=== PATIENT | female | born 1980 | race Two or more races ===

== ENCOUNTER 2018-06-30 21:18 | Emergency (ER) | payer MEDICAID, OTHER ==
[~2018-06-30] VITALS: Ht 157.5 cm; Wt 65.0 kg
[~2018-06-30 21:18] MED LIST: INSASP
[2018-06-30 21:20] VITALS: BP 136/68
== END 2018-07-01 | disposition left against medical advice (07) ==
LOC: ER 21:18
DX: M79.671 Pain in right foot (principal); Z53.21 Procedure and treatment not carried out due to patient leaving prior to being seen by health care provider
CPT/HCPCS: 82962

== ENCOUNTER 2018-07-01 07:27 | Emergency (ER) | payer MEDICAID, OTHER ==
[~2018-07-01] VITALS: Ht 160 cm; Wt 67.1 kg
[2018-07-01] MEDS ORDERED: SODIUM CHLORIDE 0.9% 1,000 ML IV ONE (08:31)
[2018-07-01] MEDS ORDERED: KETOROLAC 30MG/ML VIAL IV ONE (08:45)
[2018-07-01 08:56] LABS: BASOPHILS % 1.1 % (0.0-2.0); HEMATOCRIT. 35.5 % (36.0-48.0); HEMOGLOBIN. 11.1 g/dL (12.0-16.0); LYMPHOCYTES % 23.6 % (20.0-50.0); MEAN CORPUSCULAR HEMOGLOBIN 25.2 pg (28.0-32.0); MEAN CORPUSCULAR VOLUME 80.3 fL (81.0-99.0); MEAN PLATELET VOLUME 8.5 fl (7.4-10.4); MONOCYTES % 5.7 % (2.0-8.0); NEUTROPHILS % 67.6 % (40.0-76.0); PLATELET 369 x1000/uL (130-400); RED BLOOD CELL COUNT 4.43 mill/uL (4.2-5.4)
[2018-07-01 09:02] LABS: CHLORIDE 104 mEq/L (98-107)
[2018-07-01 09:03] LABS: INR 0.9; PROTHROMBIN TIME 9.5 sec (9.1-11.1)
[2018-07-01 09:06] LABS: ETHANOL BLOOD < 10 mg/dL
[2018-07-01 09:15] LABS: HCG SCREEN NEGATIVE
[2018-07-01 12:22] LABS: CLARITY URINE CLEAR (CLEAR); COLOR URINE YELLOW (YELLOW); KETONES URINE NEGATIVE (NEGATIVE); LEUKOCYTE ESTERASE URINE NEGATIVE (NEGATIVE); NITRITE URINE NEGATIVE (NEGATIVE); OCCULT BLOOD URINE 1+ (NEGATIVE); PH URINE 5.5 (4.5-8.0); PROTEIN URINE 3+ (NEGATIVE); SPECIFIC GRAVITY URINE 1.041 (1.005-1.030); UROBILINOGEN URINE 0.2 E.U./dL (0.2-1.0)
[2018-07-01 12:36] LABS: *BARBITURATES SCREEN URINE NEGATIVE (NEGATIVE); *BENZODIAZEPINES SCREEN URINE NEGATIVE (NEGATIVE); *COCAINE SCREEN URINE NEGATIVE (NEGATIVE); METHADONE URINE SCREEN NEGATIVE (NEGATIVE); OPIATES URINE SCREEN NEGATIVE (NEGATIVE)
[2018-07-01 12:37] LABS: CANNABINOID URINE SCREEN NEGATIVE (NEGATIVE); PHENCYCLIDINE URINE SCREEN NEGATIVE (NEGATIVE)
[2018-07-01 12:50] LABS: *AMPHETAMINES SCREEN URINE PRESUMTIVE POSITIVE (NEGATIVE)
[2018-07-01 15:01] VITALS: BP 112/67
== END 2018-07-01 15:01 | disposition home or self-care (01) ==
LOC: ER 07:27
DX: M79.89 Other specified soft tissue disorders (principal); M79.661 Pain in right lower leg; E11.9 Type 2 diabetes mellitus without complications; R50.9 Fever, unspecified; R11.10 Vomiting, unspecified; I10 Essential (primary) hypertension; F17.200 Nicotine dependence, unspecified, uncomplicated; F14.10 Cocaine abuse, uncomplicated; F15.10 Other stimulant abuse, uncomplicated; Z79.4 Long term (current) use of insulin
CPT/HCPCS: 36415; 73590; 80053; 80305; 81003; 83605; 83690; 84703; 85025; 85610; 87040; 93971; 96374; 99284; G0482; J1885; J7030

== ENCOUNTER 2018-08-15 14:55 | Emergency (ER) | payer OTHER ==
[~2018-08-15] VITALS: Ht 165.1 cm; Wt 70.0 kg
[2018-08-15 14:59] VITALS: BP 120/75
== END 2018-08-15 18:58 | disposition left against medical advice (07) ==
LOC: ER 14:55
DX: R10.2 Pelvic and perineal pain (principal); Z53.21 Procedure and treatment not carried out due to patient leaving prior to being seen by health care provider